=== PATIENT | female | born 1995 | race Caucasian/White ===

== ENCOUNTER → 2020-01-05 14:30 | Outpatient (CLI) | payer OTHER, SELFPAY ==
[2020-01-05 15:09] LABS: Basophils % 0.3 % (0.1-2.0); Eosinophils # 0.1 K/mm3 (0.0-0.4); Eosinophils % 1.6 % (0.1-12.0); Hematocrit 36.2 % (37.0-47.0); Hemoglobin 12.9 g/dL (12.2-16.2); Lymphocytes # 2.4 K/mm3 (0.7-4.5); Lymphocytes % 28.7 % (10-50); Mean Corpuscular HGB Conc 35.5 g/dL (31.8-35.4); Mean Corpuscular Hemoglobin 29.5 pg (27.0-31.2); Mean Platelet Volume 9.6 fl (7.4-10.4); Monocytes # 0.4 K/mm3 (0.1-1.0); Monocytes % 4.8 % (1.7-9.3); Neutrophils # 5.4 K/mm3 (1.8-7.8); Neutrophils % 64.6 % (37.0-80.0); Platelet Count 209 K/mm3 (142-424); Red Blood Count 4.37 M/mm3 (4.20-5.40); Red Cell Distribution Width 13.8 % (11.5-17.5); White Blood Count 8.3 K/mm3 (4.8-10.8)
[2020-01-05 17:21] LABS: Thyroid Stimulating Hormone 0.67 uIU/mL (0.465-4.68)
[2020-01-05 18:17] LABS: Benzodiazepines Screen,Urine Negative ng/ml (<200)
[2020-01-05 18:18] LABS: Amphetamine/Metha Screen,Urine Negative ng/ml (<1000); Barbiturates Screen,Urine Negative ng/ml (<200)
[2020-01-05 18:19] LABS: Cannabinoid Screen,Urine Positive ng/ml (<50)
[2020-01-05 18:20] LABS: Cocaine Screen,Urine Negative ng/ml (<300); Methadone Screen,Urine Negative ng/ml (<300)
[2020-01-05 18:21] LABS: Opiate Screen,Urine Negative ng/ml (<300); Phencyclidine Screen,Urine Negative ng/ml (<25)
[2020-01-07 11:10] LABS: HIV Screen 4th Generation wRfx Non Reactive (Non Reactive); Hepatitis B Surface Antigen Negative (Negative); Hepatitis C Antibody <0.1 s/co ratio (0.0-0.9); Rapid Plasma Reagin Ab Titer Non Reactive (NonRea<1:1); Rubella Antibodies, IgG 1.25 index (Immune >0.99)
== END ==
PROVIDERS: Visit Provider Obstetrics & Gynecology
DX: Z34.90 Encounter for supervision of normal pregnancy, unspecified, unspecified trimester (principal)
CPT/HCPCS: 36415; 80305; 84443; 85025; 86592; 86703; 86762; 86850; 87340; 87380; G0432

== ENCOUNTER 2020-01-12 22:50 | Emergency (ER) | payer OTHER, SELFPAY ==
[2020-01-12 23:03] VITALS: BP 114/65; PULSE 64; RESP 17; TEMP 36.7; O2SAT 98; BMI 25.8
--- NOTE | 2020-01-12 23:16 | PC.NURSE ---
call placed to lab
[2020-01-12 23:26] LABS: Microscopic, Urine URINE MICROSCOPIC (MICROSCOPIC)
[2020-01-12 23:29] LABS: Appearance,Urine CLEAR (Clear); Bilirubin,Urine Negative (Negative); Blood, Urine Negative (Negative); Color,Urine YELLOW (Yellow); Glucose,Urine (UA) Negative (Negative); Ketones,Urine Negative (Negative); Leukocyte Esterase,Urine Negative (Negative); Nitrate,Urine Negative (Negative); Protein,Urine Negative (Negative); Specific Gravity, Urine 1.015 (1.005-1.030); Urobilinogen,Urine 0.2 EU/dl (0.2)
--- NOTE | 2020-01-12 23:30 | PC.NURSE ---
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
[2020-01-12 23:33] LABS: Basophils # 0.1 K/mm3 (0-0.2); Basophils % 0.7 % (0.1-2.0); Eosinophils # 0.2 K/mm3 (0.0-0.4); Eosinophils % 2.2 % (0.1-12.0); Hematocrit 34.8 % (37.0-47.0); Hemoglobin 12.4 g/dL (12.2-16.2); Lymphocytes # 3.2 K/mm3 (0.7-4.5); Lymphocytes % 40.8 % (10-50); Mean Corpuscular HGB Conc 35.6 g/dL (31.8-35.4); Mean Corpuscular Hemoglobin 30.3 pg (27.0-31.2); Mean Platelet Volume 9.8 fl (7.4-10.4); Monocytes # 0.4 K/mm3 (0.1-1.0); Monocytes % 4.5 % (1.7-9.3); Neutrophils % 51.9 % (37.0-80.0); Platelet Count 201 K/mm3 (142-424); Red Blood Count 4.09 M/mm3 (4.20-5.40); Red Cell Distribution Width 13.9 % (11.5-17.5); White Blood Count 7.8 K/mm3 (4.8-10.8)
[2020-01-12 23:41] LABS: Bacteria,Urine 1+ /lpf; Squamous Epithelial Cell,Urine TNTC #/hpf (0-5)
[2020-01-12 23:48] LABS: Chloride 106 mmol/L (98-107); Sodium 135 mmol/L (136-145)
[2020-01-12 23:51] LABS: Blood Urea Nitrogen 8 mg/dl (7-17); Calcium 8.9 mg/dl (8.4-10.2); Creatinine Clearance Estimated 203 mL/min (50-200); Estimated Glomerular Filt Rate 150 ml/min (>60); GFR (African American) 182 ML/MIN (>60); Glucose 88 mg/dl (74-100)
--- NOTE | 2020-01-13 00:21 | HMH.EDPREG ---
ED Disposition Clinical Impression: Vaginal bleeding Qualifiers: Weeks of gestation: 15 weeks Qualified Code(s): Z3A.15 - 15 weeks gestation of Disposition: Home, Self-Care Condition on Discharge: Good Instructions: DI for Vaginal Bleeding Additional Instructions: call ob in am for follow up Referrals: Provider,Referral, [Primary Care Provider] - - Critical Care Critical Care Time: No Attestation: On 01/12/20, the high probability of a clinically significant, sudden or life threatening deterioration of the following system(s) required my full and direct attention, intervention and personal management. The time I documented below is in addition to time spent performing reported procedures but includes the following listed in this critical care notation. Medical Decision Making - Medical Records Medical records reviewed: Yes: I reviewed the patient's medical records. - Mark Inquiry Pt receiving controlled substance: No Vital Signs: 01/12/20 23:03 Temperature 98.1 F Temperature Source Oral Pulse Rate [Right Brachial] 64 Respiratory Rate 17 Blood Pressure [Right Arm] 114/65 Blood Pressure Mean [Right Arm] 81 Blood Pressure Source [Right Arm] Automatic Cuff Blood Pressure Position [Right Arm] Sitting 02 Sat by Pulse Oximetry 98 Oxygen Delivery Method Room Air - Lab Data Lab results reviewed: Yes: I reviewed the patient's lab results. Lab Results 01/12/20 23:15: Urine Color Yellow, Urine Appearance Clear, Urine pH 8.0, Ur Specific [place] 1.015, Urine Protein Negative, Urine Glucose (UA) Negative, Urine Ketones Negative, Urine Blood Negative, Urine Nitrate Negative, Urine Bilirubin Negative, Urine Urobilinogen 0.2, Ur Leukocyte Esterase Negative, Urine WBC 3-5, Ur Squamous Epith Cells Tntc, Urine Bacteria 1+ 01/12/20 23:20: WBC 7.8, RBC 4.09 L, Hgb 12.4, Hct 34.8 L, MCV 85.0, MCH 30.3, MCHC 35.6 H, RDW 13.9, Plt Count 201, MPV 9.8, Neut % (Auto) 51.9, Lymph % (Auto) 40.8, [place] % (Auto) 4.5, Eos % (Auto) 2.2, Baso % (Auto) 0.7, Neut # (Auto) 4.0, Lymph # (Auto) 3.2, [place] # (Auto) 0.4, Eos # (Auto) 0.2, Baso # (Auto) 0.1 01/12/20 23:20: Sodium 135 L, Potassium 4.0, Chloride 106, Carbon Dioxide 24, BUN 8, Creatinine 0.50 L, Estimated Creat Clear 203, Estimated GFR 150, Est GFR ( Amer) 182, Glucose 88, Calcium 8.9 01/12/20 23:20: Blood Type O Positive, Antibody Screen Negative Result diagrams: 01/12/20 23:20 01/12/20 23:20 Orders (Tests/Meds): ORDERS Category Date Time Status Basic Metabolic Panel Stat Lab 01/12/20 23:20 Results HCG,Quantitative Stat Lab 01/12/20 23:20 Results US OB >= 14 weeks Fetus Stat Ultrasound 01/13/20 23:42 Taken - US Data US Images: Pelvis ED US Reviewed: Yes: I discussed the US results w/the radiologist Findings Narrative: no acute abn HPI - General Chief complaint: Vaginal Bleeding Stated complaint: 16 wk preg,bleeding and cramping Time Seen by Provider: 01/12/20 23:35 Mode of Arrival: Family Vehicle Source of Information: Patient, Medical Record Limitations: No Limitations Description of Symptoms (Recalled from ER Triage Doc. 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
[2020-01-13 00:33] VITALS: BP 120/74; PULSE 65; RESP 18; TEMP 36.8; O2SAT 99
[2020-01-13 01:12] LABS: Carbon Dioxide 24 mmol/L (22.0-30.0)
--- NOTE | 2020-01-13 23:42 | US_ITS ---
PROCEDURE: US OB >= 14 WEEKS FETUS CLINICAL INDICATION: 15 wks vaginal bleeding cramping COMPARISON: No exams were available for comparison FINDINGS: measurements are compatible with a gestational age of 15weeks 5days. FHR of 163bpm. The fetus is in a cephalic lie. Placenta is in a posterior implantation. Fetus is active. IMPRESSION: Viable 15 week 5 day IUP Estimated due date by Ultrasound is 06/30/2020 Dictated by: Werner Lucero 01/13/2020 09:13 Electronically signed by Werner Lucero in [facility] 01/13/2020 09:13
== END 2020-01-13 00:40 | disposition home or self-care (01) ==
PROVIDERS: Emergency Provider Emergency Medicine
DX: O46.8X2 Other antepartum hemorrhage, second trimester (principal); Z3A.16 16 weeks gestation of pregnancy; D64.9 Anemia, unspecified; Z87.891 Personal history of nicotine dependence
CPT/HCPCS: 76805; 80048; 81001; 84702; 85025; 86850; 99282; 99283

== ENCOUNTER → 2020-03-23 16:48 | Outpatient (CLI) | payer OTHER, SELFPAY ==
[2020-03-23 17:48] LABS: Amphetamine/Metha Screen,Urine Negative ng/ml (<1000); Barbiturates Screen,Urine Negative ng/ml (<200)
[2020-03-23 17:49] LABS: Benzodiazepines Screen,Urine Negative ng/ml (<200); Cannabinoid Screen,Urine Negative ng/ml (<50)
[2020-03-23 17:50] LABS: Methadone Screen,Urine Negative ng/ml (<300)
[2020-03-23 17:51] LABS: Opiate Screen,Urine Negative ng/ml (<300)
[2020-03-23 17:52] LABS: Phencyclidine Screen,Urine Negative ng/ml (<25)
[2020-03-23 17:58] LABS: Cocaine Screen,Urine Negative ng/ml (<300)
== END ==
PROVIDERS: Visit Provider Obstetrics & Gynecology
DX: Z34.90 Encounter for supervision of normal pregnancy, unspecified, unspecified trimester (principal)
CPT/HCPCS: 80305

== ENCOUNTER → 2020-03-26 14:20 | Outpatient (CLI) | payer OTHER, SELFPAY ==
--- NOTE | 2020-03-26 14:24 | US_ITS ---
PROCEDURE: US OB /MATERNAL DETAIL CLINICAL INDICATION: US OB Complete COMPARISON: US US OB >= 14 WEEKS FETUS from 01/12/2020 FINDINGS: There is a live IUP in cephalic presentation. heart and body motion noted. Cervix is closed and measures 3.6 cm. The placenta is posterior and grade 1. There is average appearing amount of amniotic fluid. Complete survey performed and was unremarkable on the submitted images as in PACS. No discrete anomalies identified on survey imaging by technologist. Active fetus. Three-vessel cord with satisfactory umbilical cord insertion. 4- chamber heart noted. Survey of brain & ventricles Unremarkable. Face and neck survey unremarkable. Diaphragm and chest views unremarkable. Abdomen: Both kidneys noted and unremarkable. Stomach noted and satisfactory. Spine: Survey of the spine satisfactory with no anomalies identified nor imaged. Both arms and legs noted. Amniotic Fluid: Adequate. Maternal adnexa: No significant findings. Measurements: Average ultrasound age 26weeks 1day. Gestational Age 26weeks 3days Estimated due date by ultrasound age 1207/01/2020. Estimated weight 863g BPD = 26weeks 3days OFD = 26weeks 3days HC = 26weeks AC = 25weeks 5days FL = 26weeks 2days Growth Percentile= 19percent% Heart Rate = 153bpm Cerebellum = 27 weeks 5 days Humerus = HC/AC is 1.13 CI is 76 percent FL/BPD is 74 percent FL/AC is 23 percent IMPRESSION: Live IUP in cephalic presentation with an average ultrasound age of 26 weeks and 1 day. Please see above for details Dictated by: Macario Santana MD 03/27/2020 08:57 Macario Santana MD in [facility] 03/27/2020 08:57
== END ==
PROVIDERS: PCP Internal Medicine Adolescent Medicine; Visit Provider Obstetrics & Gynecology
DX: Z36.0 Encounter for antenatal screening for chromosomal anomalies (principal)
CPT/HCPCS: 76811

== ENCOUNTER 2020-03-26 15:34 | Emergency (ER) | payer OTHER, SELFPAY ==
--- NOTE | 2020-03-26 15:52 | XR_ITS ---
PROCEDURE: XR SHOULDER RT MIN 2V CLINICAL INDICATION: FELL IN SHOWER Posttraumatic pain COMPARISON: No exams were available for comparison FINDINGS: No fracture or dislocation. No lytic or blastic change. There is normal mineralization. The joint spaces are well-preserved. No significant degenerative/arthritic changes. No erosive changes evident. Other findings:None. IMPRESSION: No acute findings. Dictated by: Macario Santana MD 03/26/2020 18:58 Macario Santana MD in [facility] 03/26/2020 18:58
[2020-03-26 16:02] VITALS: BP 110/61; PULSE 77; RESP 19; TEMP 36.6; O2SAT 100; BMI 24.3
--- NOTE | 2020-03-26 16:07 | HMH.EDUTC ---
[facility] [place] [facility] [place] Clinical Impression: Sprain of shoulder Qualifiers: Encounter type: initial encounter Shoulder sprain type: unspecified sprain Laterality: right Qualified Code(s): S43.401A - Unspecified sprain of right shoulder joint, initial encounter Contusion Qualifiers: Encounter type: initial encounter Contusion area: shoulder Laterality: right Qualified Code(s): S40.011A - Contusion of right shoulder, initial encounter Disposition: Home, Self-Care Condition on Discharge: Good Instructions: How to Use a Sling, Shoulder Sprain, How To Perform RICE (Rest, Ice, Compress, Elevate), DI for Shoulder Sprain Additional Instructions: Call back to [facility] later this evening to see if Radiologist has read your Xray and official reading of xray *RICE, Rest the extremity, Ice 15-20 minutes 3-4 times daily, Compress- wear the dillan wrap as discussed as much as possible to help reduce swelling and pain, Elevate the extremity when at rest *Dillan wrap/sling is for support and help control swelling, use it except in the shower. Be sure that is not to tight but not to loose either *Elevate when resting *Tylenol for pain if needed Immediately follow up with your family doctor for new or worsening of symptoms, or no noticeable improvement over the next 3-5 days Follow up with Family Doctor if no improvement Return if needed Follow up with Dr Gomes in Orthopedic if no improvement or any worsening of symptoms Straight to ER if any life threatening symptoms Referrals: PCP,No [Primary Care Provider] - As needed Sneha Gomes MD [Physician] - As needed Time of Disposition: 16:55 Medical Decision Making - Mark Inquiry Pt receiving controlled substance: Bettie Flores was queried for this patient: No Vital Signs: 03/26/20 16:02 03/26/20 17:01 Temperature 97.8 F 97.8 F Temperature Source Oral Pulse Rate 77 Pulse Rate [Right Brachial] 77 Respiratory Rate 19 19 Blood Pressure 110/61 Blood Pressure [Right Arm] 110/61 Blood Pressure Mean [Right Arm] 77 Blood Pressure Source [Right Arm] Automatic Cuff Blood Pressure Position [Right Arm] Sitting 02 Sat by Pulse Oximetry 100 Oxygen Delivery Method Room Air - Radiology Data #1 Image(s): Shoulder Image Reviewed: Yes I reviewed the patient's radiology image w/the ED provider Preliminary Findings: No Fracture Seen [facility] [place] [facility] [place] HPI - General Stated complaint: AO fall 03/26/20 injured R shoulder/arm Time Seen by Provider: 03/26/20 16:08 Mode of Arrival: Ambulatory Source of Information: Patient Limitations: No Limitations Description of Symptoms (Recalled from Triage Doc. by RN): PATIENT C/O RIGHT SHOULDER PAIN AFTER FALLING IN THE SHOWER LAST NIGHT. SHE IS 26 WEEKS HEENT Symptoms (Recalled from RN notes): No Resp Symptoms (Recalled from RN notes): No Skin Symptoms (Recalled from RN notes): No MS Symptoms (Recalled from RN notes): Yes Functional Status (Recalled from RN notes): WNL - History of Present Illness Provider Complaint: Patient states that she is 26wks OB and just came from floor after the monitored her to make sure that baby is ok to have her right shoulder checked out States that she slipped and fell last night in the shower and landed on her right shoulder area States that ever since she has been having pain shooting into her shoulder area when she tries to move it - Related Data Home Medications Medication Instructions Recorded Confirmed No Known Home Medications 03/26/20 03/26/20 Allergies Allergy/AdvReac Type Severity Reaction Status Date / Time acetaminophen Allergy Mild Verified 03/23/20 14:00 [From Midol Complete] caffeine Allergy Mild Verified 03/23/20 14:00 [From Midol Complete] diphenhydramine Allergy Mild Verified 03/23/20 14:00 [From Benadryl] hydromorphone [From Dilaudid] Allergy Mild Verified 03/23/20 14:00 pyrilamine Allergy Mild Verified 03/23/20 14:00 [From Midol Complete] - Worker's Comp Is thi
[2020-03-26 17:01] VITALS: BP 110/61; PULSE 77; RESP 19; TEMP 36.6; O2SAT 100
== END 2020-03-26 17:05 | disposition home or self-care (01) ==
PROVIDERS: Emergency Provider Nurse Practitioner
DX: S43.401A Unspecified sprain of right shoulder joint, initial encounter (principal); S40.011A Contusion of right shoulder, initial encounter; Z3A.26 26 weeks gestation of pregnancy; D64.9 Anemia, unspecified; W18.2XXA Fall in (into) shower or empty bathtub, initial encounter; Y92.012 Bathroom of single-family (private) house as the place of occurrence of the external cause
CPT/HCPCS: 73030; 99201

== ENCOUNTER → 2020-03-31 16:01 | Outpatient (CLI) | payer OTHER, SELFPAY ==
[2020-03-31 16:14] LABS: Basophils % 0.2 % (0.1-2.0); Eosinophils # 0.1 K/mm3 (0.0-0.4); Eosinophils % 1.2 % (0.1-12.0); Hematocrit 31.5 % (37.0-47.0); Hemoglobin 11.2 g/dL (12.2-16.2); Lymphocytes % 13.2 % (10-50); Mean Corpuscular HGB Conc 35.4 g/dL (31.8-35.4); Mean Corpuscular Hemoglobin 31.2 pg (27.0-31.2); Mean Corpuscular Volume 88.2 fl (81-99); Monocytes # 0.3 K/mm3 (0.1-1.0); Monocytes % 3.9 % (1.7-9.3); Neutrophils # 6.4 K/mm3 (1.8-7.8); Neutrophils % 81.6 % (37.0-80.0); Platelet Count 182 K/mm3 (142-424); Red Blood Count 3.57 M/mm3 (4.20-5.40); Red Cell Distribution Width 14.1 % (11.5-17.5); White Blood Count 7.8 K/mm3 (4.8-10.8)
[2020-03-31 16:40] LABS: Erythrocyte Sedimentation Rate 113 mm/hr (0-20)
[2020-03-31 16:55] LABS: Chloride 104 mmol/L (98-107); Sodium 137 mmol/L (136-145)
[2020-03-31 16:56] LABS: Potassium 3.8 mmoL/L (3.5-5.1)
[2020-03-31 16:58] LABS: Alanine Aminotransferase 10 U/L (12-78); Albumin Level 3.6 g/dl (3.5-5.0); Albumin/Globulin Ratio 1.3 (1.1-1.8); Alkaline Phosphatase 61 U/L (38-126); Anion Gap 12.8 mEq/L (5-15); Aspartate Amino Transferase 17 U/L (14-36); Bilirubin,Total 0.4 mg/dl (0.2-1.3); Blood Urea Nitrogen 4 mg/dl (7-17); Calcium 9.2 mg/dl (8.4-10.2); Carbon Dioxide 24 mmol/L (22.0-30.0); Estimated Glomerular Filt Rate 150 ml/min (>60); GFR (African American) 182 ML/MIN (>60); Globulin 2.8 g/dL (1.3-3.2); Glucose 89 mg/dl (74-100); Total Protein,Serum 6.4 g/dl (6.3-8.2)
[2020-04-02 15:10] LABS: Anti-Centromere B Antibodies <0.2 AI (0.0-0.9); Anti-Jo-1 <0.2 AI (0.0-0.9); Anti-Smith Antibody <0.2 AI (0.0-0.9); Antichromatin Antibodies <0.2 AI (0.0-0.9); Antiscleroderma-70 Antibodies <0.2 AI (0.0-0.9); RNP Antibodies <0.2 AI (0.0-0.9); Sjogren's Anti-SS-A <0.2 AI (0.0-0.9); Sjogren's Anti-SS-B <0.2 AI (0.0-0.9)
[2020-04-02 17:19] LABS: Anti-DNA (DS) Ab Qn <1 IU/mL (0-9)
[2020-04-05 13:35] LABS: Cold Agglutinin Titer, Quant Negative (Neg <1:32)
== END ==
PROVIDERS: Visit Provider Internal Medicine Adolescent Medicine
DX: L51.9 Erythema multiforme, unspecified (principal); O99.89 Other specified diseases and conditions complicating pregnancy, childbirth and the puerperium
CPT/HCPCS: 36415; 80053; 85025; 85651; 86157; 86225; 86235

== ENCOUNTER → 2020-04-07 09:54 | Outpatient (CLI) | payer OTHER, SELFPAY ==
[2020-04-07 10:53] LABS: Glucose,Fasting 115 mg/dl (74-100)
[2020-04-07 11:04] LABS: Coronavirus 19 IgG Antibody Negative (Negative); Coronavirus 19 IgM Antibody Negative (Negative)
[2020-04-07 11:59] LABS: Glucose 1 Hour 172 mg/dL (74-100)
[2020-04-08 09:23] LABS: Cytomegalovirus (CMV) Ab, IgG <0.60 U/mL (0.00-0.59); Cytomegalovirus (CMV) Ab, IgM <30.0 AU/mL (0.0-29.9)
[2020-04-10 18:15] LABS: Parvovirus B19, IgG 7.7 index (0.0-0.8); Parvovirus B19, IgM 0.1 index (0.0-0.8)
== END ==
PROVIDERS: Visit Provider Obstetrics & Gynecology
DX: Z34.90 Encounter for supervision of normal pregnancy, unspecified, unspecified trimester (principal)
CPT/HCPCS: 36415; 82951; 86328; 86644; 86645; 86695; 86696; 86747